=== PATIENT | female | born 1990 | race American Indian/Alaskan Native ===

== ENCOUNTER 2018-06-01 16:45 | Emergency (ER) | payer SELFPAY ==
[2018-06-01 16:48] VITALS: BP 118/76; PULSE 68; RESP 20; TEMP 98.4; O2SAT 97
--- NOTE | 2018-06-01 17:08 | C.PDOC ---
History Of Present Illness 27 yr old F states she has a soreness to her right breast, chest wall above right breast and under right breast. she was wearing her sport's bra to work, bra felt tight since she gained a little weight and pain developed around 4 pm. Pt did not take any meds. Pt denies any trauma to right chest/breast, denies rash. Usually wears regular bra to work. Chief Complaint (Nursing): Breast Problem History Per: Patient History/Exam Limitations: no limitations Onset/Duration Of Symptoms: Days (1), Sudden Onset Severity: Moderate Pain Scale Rating Of: 6 Past Medical History Reviewed: Historical Data, Nursing Documentation, Vital Signs Vital Signs: Last Vital Signs Temp 98.4 F 06/01/18 16:46 Pulse 68 06/01/18 16:46 Resp 20 06/01/18 16:46 BP 118/76 06/01/18 16:46 Pulse Ox 97 06/01/18 18:31 Family History: States: No Known Family Hx - Social History Hx Alcohol Use: Yes Hx Substance Use: No - Immunization History Hx Influenza Vaccination: No Hx Pneumococcal Vaccination: No Review Of Systems Constitutional: Negative for: Fever Eyes: Negative for: Pain Cardiovascular: Negative for: Palpitations, Orthopnea, Edema, Light Headedness Respiratory: Negative for: Cough Physical Exam - Physical Exam Appears: Well, Non-toxic, No Acute Distress Skin: Normal Color, Warm, Dry, Other (no evidence of shingles) Head: Atraumatic, Normacephalic Eye(s): bilateral: Normal Inspection Neck: Normal, Normal ROM Lymphatic: No Adenopathy Chest: Symmetrical, No Deformity, Tenderness (right breast, chest wall above and below right breast) ED Course And Treatment O2 Sat by Pulse Oximetry: 97 Disposition Counseled Patient/Family Regarding: Diagnosis, Need For Followup, Rx Given - Disposition Referrals: [facility] [Outside] [facility] [Outside] Disposition: HOME/ ROUTINE Disposition Time: 17:06 Condition: STABLE Additional Instructions: FOLLOW UP WITH PMD OR CLINIC FOR RE-EVALUATION ON SUNDAY. IF RASH OF AFFECTED AREA DEVELOPS RETURN TO ED OR SEE PMD LYNNE. Prescriptions: Ibuprofen [Motrin Tab] 1 tab PO Q6H PRN #15 tab PRN Reason: Pain, Moderate (4-7) Instructions: Chest Pain That Is Not Caused by the Heart (DC), Mastalgia (DC) Forms: [facility] (Persian), General Discharge Instructions - Clinical Impression Clinical Impression: Pain of breast, Right-sided chest wall pain
== END 2018-06-01 17:28 | disposition home or self-care (01) ==
LOC: C.ER 16:45
DX: N64.4 Mastodynia (principal); R07.89 Other chest pain